=== PATIENT | female | born 1980 | race Caucasian/White ===

== ENCOUNTER 2017-05-26 12:31 | Emergency (ER) | payer MEDICAID ==
[2017-05-26] MEDS ORDERED: IPRATROPIUM/ALBUTEROL 3 ML NEB INH STA (12:55)
--- NOTE | 2017-05-26 12:58 | ED Physician Documentation ---
History of Present Illness - Stated complaint Stated Complaint: COUGH - Chief complaint Chief Complaint: Resp - History obtained from History obtained from: Patient - History of Present Illness Timing: How many weeks ago (1) Pain level max: 0 Pain level now: 0 Improved by: rest Worsened by: walking - Additonal information Additional information: States sick for the past week. Using albuterol at home, was on steroids, but out now. Still on doxycycline. States albuterol is not helping. No fevers. Has been coughing, non-productive. Review of Systems Constitutional: denies: Fever, Chills Ears: reports: Ear pain (L) Nose: reports: Rhinorrhea / runny nose, Congestion Respiratory: reports: Cough, Wheezing GI: denies: Abdominal Pain, Nausea, Vomiting, Diarrhea : denies: Dysuria, Frequency, Hesitancy, Now EGA Skin: denies: Rash Musculoskeletal: denies: Neck pain, Back pain Neurologic: denies: Headache PD PAST MEDICAL HISTORY - Past Medical History Past Medical History: Yes Respiratory: Asthma, COPD GI: Hepatitis Other Past Medical History: HEP C - Past Surgical History Past Surgical History: Yes /[employer]: section - Present Medications Home Medications: Ambulatory Orders Medication Instructions Recorded Confirmed Albuterol Sulf [Ventolin Hfa 1 - 2 puffs INH Q4HR PRN #1 inhaler 05/26/17 Inhaler] Albuterol Sulfate [Proair Hfa 05/26/17 Inhaler] Benzonatate [Tessalon Perle] 100 - 200 mg PO TID PRN #30 capsule 05/26/17 Doxycycline Hyclate 05/26/17 Guaifenesin/Dextromethorphan [[facility] 5 ml PO Q6H PRN #100 ml 05/26/17 Tussin Dm Liquid] predniSONE [Prednisone] 40 mg PO DAILY #10 tablet 05/26/17 - Allergies Allergies/Adverse Reactions: Allergies Allergy/AdvReac Type Severity Reaction Status Date / Time No Known Drug Allergies Allergy Verified 05/26/17 12:38 - Social History Does the pt smoke?: No Smoking Status: Never smoker PD ED PE NORMAL - Vitals Vital signs reviewed: Yes - General General: Alert and oriented X 3, No acute distress - HEENT HEENT: Ears normal, Moist mucous membranes, Pharynx benign - Neck Neck: Supple, no meningeal sign - Cardiac Cardiac: RRR - Respiratory Respiratory: No respiratory distress, Other (wheezing B) - Abdomen Abdomen: Soft, Non tender, Non distended - Derm Derm: Warm and dry - Extremities Extremities: No edema, No calf tenderness / cord - Neuro Neuro: Alert and oriented X 3 - Psych Psych: Normal mood, Normal affect Results - Vitals Vitals: Vital Signs - 24 hr 05/26/17 05/26/17 05/26/17 12:36 13:24 14:22 Temperature 36.1 C L Heart Rate 58 L 67 60 Respiratory 24 18 16 Rate Blood Pressure 132/76 H 130/69 O2 Saturation 100 98 Oxygen O2 Source Room air - Rads (name of study) cxr Radiology: Prelim report reviewed, EMP read contemporaneously, See rad report ( No evidence of acute thoracic process ) PD MEDICAL DECISION MAKING - ED course Complexity details: reviewed results, re-evaluated patient, considered differential, d/w patient ED course: Patient is a 37-year-old female who presents to the emergency department with what appears to be a viral URI complicating her asthma. Feels better after nebulizer treatment here. Spacer teaching was performed along with inhaler teaching. She is in no respiratory distress. Not hypoxic. We will continue supportive care and follow-up with her doctor. No evidence of pneumonia. Patient counseled regarding signs and symptoms for which I believe and urgent re -evaluation would be necessary. Patient with good understanding of and agreement to plan and is comfortable going home at this time This document was made in part using voice recognition software. While efforts are made to proofread this document, sound alike and grammatical errors may occur. Departure - Departure Disposition: 01 Home, Self Care Clinical Impression: Asthma exacerbation Qualifiers: Asthma severity: unspecified severity Asthma persistence: unspecified Qualified Code(s): J45.901 - Unspecified asthma with (acute) exacerbation Condition: Good Instructions: ED Reactive Airway Disease Follow-Up: [facility] [Provider Group] [facility] [Provider Group] - Within 1 week Prescriptions: Albuterol Sulf [Ventolin Hfa Inhaler] 1 - 2 puffs INH Q4HR PRN #1 inhaler PRN Reason: Shortness Of Air/Wheezing Benzonatate [Tessalon Perle] 100 - 200 mg PO TID PRN #30 capsule PRN Reason: Cough Guaifenesin/Dextromethorphan [[facility] Tussin Dm Liquid] 5 ml PO Q6H PRN #100 ml PRN Reason: Cough predniSONE [Prednisone] 40 mg PO DAILY #10 tablet Comments: Return if you worsen. Please continue to stop smoking. Discharge Date/Time: 05/26/17 14:22
--- NOTE | 2017-05-26 13:18 | XRAY Report ---
EXAM: CHEST RADIOGRAPHY EXAM DATE: 05/26/2017 01:10 PM. CLINICAL HISTORY: Cough, dyspnea. COMPARISON: None. TECHNIQUE: 2 views. FINDINGS: Sternotomy is noted. Lungs/pleura: No focal opacities evident. No pleural effusion. No pneumothorax. Normal volumes. Mediastinum: Heart and mediastinal contours are unremarkable. IMPRESSION: No evidence of acute thoracic process [facility] Referring Provider Line: [phone] SITE ID: [id number]
[2017-05-26 14:22] VITALS: BP 130/69
== END 2017-05-26 14:22 | disposition home or self-care (01) ==
LOC: ED 12:31
DX: J45.901 Unspecified asthma with (acute) exacerbation (principal)
CPT/HCPCS: 71046; 94640; 94664; 99283